=== PATIENT | female | born 1965 | race Two or more races ===

== ENCOUNTER 2018-05-07 19:47 | Emergency (ER) | payer SELFPAY ==
[~2018-05-07] VITALS: Ht 157.5 cm; Wt 60.0 kg
[2018-05-07 19:51] VITALS: Ht 157.5 cm; Wt 60.0 kg
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
[2018-05-07] MEDS ORDERED: IBUPROFEN 600 MG TAB PO ONE (20:30)
[2018-05-07] MEDS ORDERED: IBUP-1542 PO (20:38)
[2018-05-07 21:43] VITALS: BP 106/59; PULSE 87; RESP 16
== END 2018-05-07 21:45 | disposition home or self-care (01) ==
LOC: FTE 19:47
DX: R07.81 Pleurodynia (principal)
CPT/HCPCS: 71045